=== PATIENT | female | born 1960 | race American Indian/Alaskan Native ===

== ENCOUNTER 2020-09-25 09:05 | Emergency (ER) | payer SELFPAY ==
[2020-09-25 09:13] VITALS: BP 146/92
[2020-09-25 09:35] LABS: Bilirubin,Urine NEG (Negative); Blood,Urine MOD (Negative); Color,Urine Colorless (Yellow); Protein,Urine <15 mg/dL mg/dL (Negative); Urobilinogen,Urine < 2.0 mg/dL (<2.0)
--- NOTE | 2020-09-25 09:37 | Emergency Department Report ---
ED Dysuria HPI - HPI Chief Complaint: Abdominal Pain Stated Complaint: LOW ABD PAIN/LEG PAIN Duration: 3 Days Location of Discomfort: Suprapubic Severity: Mild Symptoms: Dysuria: Yes, Frequency: Yes, Suprapubic Pain: Yes, Flank Pain: No, Fever: No, Hematuria: No, Abdominal Pain: No, Previous UTI's: No Other History: This is a 59-year-old female presents to the ED with no prior medical conditions known to me complaining of suprapubic pain with dysuria times a couple days. Patient also states she has been having knee and foot pain for the past week. Patient states she does a lot of standing at work and feels that pain is getting worse due to the prolonged standing. Patient states that she does have a history of arthritis and has been taking her friend's arthritis medication which helps with joint swelling. Patient states pain has been localized to her right knee and right foot. She denies any fever, chills, nausea vomiting, abdominal pain, thigh or calf pain. ED Review of Systems ROS: Stated complaint: LOW ABD PAIN/LEG PAIN Other details as noted in HPI Comment: All other systems reviewed and negative ED Past Medical Hx - Past Medical History Previous Medical History?: Yes Hx Psychiatric Treatment: Yes (Anxiety) - Surgical History Additional Surgical History: Cardiac cath 2012- no blockages - Social History Smoking Status: Never Smoker Substance Use Type: None - Medications Home Medications: Home Medications Medication Instructions Recorded Confirmed Last Taken Type ALPRAZolam [Xanax] 0.25 mg PO Q8HR PRN #10 tablet 12/07/13 Unknown Rx Ibuprofen [Motrin] 600 mg PO Q8H PRN #50 tablet 12/07/13 Unknown Rx Penicillin Vk [Veetids TAB] 500 mg PO QID #40 tablet 12/07/13 Unknown Rx HYDROcodone/APAP 5-325 [[place] 1 each PO Q6HR PRN #10 tablet 04/16/14 Unknown Rx 5/325] Ibuprofen [Motrin] 800 mg PO Q8H PRN #30 tablet 04/16/14 Unknown Rx Penicillin Vk [Veetids TAB] 500 mg PO QID #40 tablet 04/16/[address] [Voltaren Dr] 75 mg PO BID #30 tablet 09/25/20 Unknown Rx Sulfamethoxazole/Trimethoprim 1 each PO BID #10 tablet 09/25/20 Unknown Rx [Bactrim DS TAB] Dysuria Exam - Exam General: Vital signs noted. No distress. Alert and acting appropriately. Exam: Yes Moist Mucous Membranes, No CVA Tenderness, No Abdominal Tenderness, No Rigidity or Guarding Exam: Homans' sign negative. Tenderness to palpation with applied pressure of the foot. However no calf tenderness. No swelling noted, pedal pulses are present and bounding bilaterally ED Course Vital Signs 09/25/20 09:12 Temperature 98.1 F Pulse Rate 103 H Respiratory 18 Rate Blood Pressure 146/92 [Right] O2 Sat by Pulse 98 Oximetry ED Medical Decision Making - Lab Data Result diagrams: 09/25/20 09:24 09/25/20 09:24 Laboratory Last Values WBC 6.8 K/mm3 (4.5-11.0) 09/25/20 09:24 RBC 3.98 M/mm3 (3.65-5.03) 09/25/20 09:24 Hgb 12.9 gm/dl (10.1-14.3) 09/25/20 09:24 Hct 39.2 % (30.3-42.9) 09/25/20 09:24 MCV 98 fl (79-97) H 09/25/20 09:24 MCH 33 pg (28-32) H 09/25/20 09:24 MCHC 33 % (30-34) 09/25/20 09:24 RDW 13.4 % (13.2-15.2) 09/25/20 09:24 Plt Count 203 K/mm3 (140-440) 09/25/20 09:24 Lymph % (Auto) 35.1 % (13.4-35.0) H 09/25/20 09:24 [place] % (Auto) 9.4 % (0.0-7.3) H 09/25/20 09:24 Eos % (Auto) 2.6 % (0.0-4.3) 09/25/20 09:24 Baso % (Auto) 0.6 % (0.0-1.8) 09/25/20 09:24 Lymph # (Auto) 2.4 K/mm3 (1.2-5.4) 09/25/20 09:24 [place] # (Auto) 0.6 K/mm3 (0.0-0.8) 09/25/20 09:24 Eos # (Auto) 0.2 K/mm3 (0.0-0.4) 09/25/20 09:24 Baso # (Auto) 0.0 K/mm3 (0.0-0.1) 09/25/20 09:24 Seg Neutrophils % 52.3 % (40.0-70.0) 09/25/20 09:24 Seg Neutrophils # 3.6 K/mm3 (1.8-7.7) 09/25/20 09:24 Sodium 139 mmol/L (137-145) 09/25/20 09:24 Potassium 4.2 mmol/L (3.6-5.0) 09/25/20 09:24 Chloride 105.3 mmol/L (98-107) 09/25/20 09:24 Carbon Dioxide 26 mmol/L (22-30) 09/25/20 09:24 Anion Gap 12 mmol/L 09/25/20 09:24 BUN 10 mg/dL (7-17) 09/25/20 09:24 Creatinine 0.5 mg/dL (0.6-1.2) L 09/25/20 09:24 Estimated GFR > 60 ml/min 09/25/20 09:24 BUN/Creatinine Ratio 20 % 09/25/20 09:24 Glucose 109 mg/dL (65-100) H 09/25/20 09:24 Calcium 9.3 mg/dL (8.4-10.2) 09/25/20 09:24 Urine Color Colorless (Yellow) 09/25/20 09:25 Urine Turbidity Clear (Clear) 09/25/20 09:25 Urine pH 7.0 (5.0-7.0) 09/25/20 09:25 Ur Specific [place] 1.002 (1.003-1.030) L 09/25/20 09:25 Urine Protein <15 mg/dl mg/dL (Negative) 09/25/20 09:25 Urine Glucose (UA) Neg mg/dL (Negative) 09/25/20 09:25 Urine Ketones Neg mg/dL (Negative) 09/25/20 09:25 Urine Blood Mod (Negative) 09/25/20 09:25 Urine Nitrite Neg (Negative) 09/25/20 09:25 Urine Bilirubin Neg (Negative) 09/25/20 09:25 Urine Urobilinogen < 2.0 mg/dL (<2.0) 09/25/20 09:25 Ur Leukocyte Esterase Neg (Negative) 09/25/20 09:25 Urine WBC (Auto) < 2.0 /HPF (0.0-6.0) 09/25/20 09:25 Urine RBC (Auto) 2.0 /HPF (0.0-6.0) 09/25/20 09:25 U Epithel Cells (Auto) < 1.0 /HPF (0-13.0) 09/25/20 09:25 - Medical Decision Making 59-year-old female presenting with dysuria and urinary frequency. Patient also evaluated for right foot pain, acute on chronic All labs within normal limits urinalysis negative. Patient still adamant and stating that she has symptoms so we will treat with antibiotics. Discussed arthritic and chronic foot pain needs to be seen by pod iatry/orthopedic. I discussed with patient need to follow-up within a week. Patient states that she does do a lot of standing at work and wanted about a week off of work. I explained to patient that she will be given a 48-hour work note and is to follow-up with primary care physician or orthopedic for prolonged work note. All referrals given to patient patient understands instructions as given. No acute distress. Critical care attestation.: If time is entered above; I have spent that time in minutes in the direct care of this critically ill patient, excluding procedure time. ED Disposition Clinical Impression: Knee pain, right, Osteoarthritis, Dysuria Disposition: - TO HOME OR SELFCARE Is pt being admited?: No Does the pt Need Aspirin: No Condition: Stable Instructions: Osteoarthritis, Musculoskeletal Pain, Joint Pain, [id number], Abdominal Pain (ED) Additional Instructions: Make sure to follow up with the primary care physician as discussed. Take all your medications as you've been prescribed. If you have any worsening symptoms or develop new symptoms please return to ED immediately. Prescriptions: Sulfamethoxazole/Trimethoprim [Bactrim DS TAB] 1 each PO BID #10 tablet Diclofenac [Voltarelucio St] 75 mg PO BID #30 tablet Referrals: JUDY GALICIA MD [Staff Physician] - 3-5 Days [facility] [Provider Group] - 3-5 Days [facility] [Outside] - 3-[address] [facility] [Outside] - 3-5 Days Forms: Work/School Release Form(ED) Time of Disposition: 12:05
[2020-09-25 09:39] LABS: Basophils % (Auto) 0.6 % (0.0-1.8); Eosinophils # (Auto) 0.2 K/mm3 (0.0-0.4); Eosinophils % (Auto) 2.6 % (0.0-4.3); Hematocrit 39.2 % (30.3-42.9); Hemoglobin 12.9 gm/dl (10.1-14.3); Lymphocytes # (Auto) 2.4 K/mm3 (1.2-5.4); Lymphocytes % (Auto) 35.1 % (13.4-35.0); Mean Corpuscular HGB Conc 33 % (30-34); Mean Corpuscular Volume 98 fl (79-97); Monocytes # (Auto) 0.6 K/mm3 (0.0-0.8); Monocytes % (Auto) 9.4 % (0.0-7.3); Platelet Count 203 K/mm3 (140-440); Red Blood Count 3.98 M/mm3 (3.65-5.03); Red Cell Distribution Width 13.4 % (13.2-15.2)
[2020-09-25 10:01] LABS: Blood Urea Nitrogen 10 mg/dL (7-17); Calcium 9.3 mg/dL (8.4-10.2); Hemolysis Index 0
[2020-09-25 10:19] LABS: BUN/Creatinine Ratio 20
[2020-09-25 11:19] LABS: WBC,Urine < 2.0 /HPF (0.0-6.0)
== END 2020-09-25 12:15 | disposition home or self-care (01) ==
LOC: ED 09:05
DX: M17.11 Unilateral primary osteoarthritis, right knee (principal); R30.0 Dysuria; F41.9 Anxiety disorder, unspecified; Z79.899 Other long term (current) drug therapy
CPT/HCPCS: 36415; 80048; 81001; 85025; 99283